=== PATIENT | male | born 1945 | race Caucasian/White ===

== ENCOUNTER → 2024-05-15 10:55 | Outpatient (REF) | payer MEDICARE, OTHER, SELFPAY | LOC: RAD 10:55 | PROVIDERS: ATTENDING PHYSICIAN Internal Medicine Cardiovascular Disease; FAMILY PHYSICIAN Internal Medicine | DX: R09.89 Other specified symptoms and signs involving the circulatory and respiratory systems (principal) | CPT/HCPCS: 93880 ==

== ENCOUNTER → 2024-07-24 10:14 | Outpatient (REF) | payer MEDICARE, OTHER, SELFPAY | LOC: HWRCS 10:14 | PROVIDERS: ATTENDING PHYSICIAN Internal Medicine Cardiovascular Disease; FAMILY PHYSICIAN Internal Medicine | DX: I50.32 Chronic diastolic (congestive) heart failure (principal) | CPT/HCPCS: 93306 ==

== ENCOUNTER 2024-12-26 09:33 | Day surgery (SDC) | payer MEDICARE, OTHER, SELFPAY ==
[2024-12-26] VITALS (7 sets, daily range): BP systolic 154–161; BP diastolic 76–101; BMI 31.3
--- NOTE | 2024-12-26 10:14 | W.ICD.CONTRA ---
Post ICD/RN HEMODIALYSIS-D
-
History of CO?: No
LV Function
Left ventricular function study result?: Ejection Fraction >/= 40%
ACEI/ARB/ARNI
Patient already on ACEI/ARB/ARNI: Yes
Beta-Brianna
Patient already on Beta Brianna: Yes
[2024-12-26 10:37] LABS: Glucose - Point of Care 177 mg/dl (70-99)
[2024-12-26 13:53] LABS: Glucose - Point of Care 114 mg/dl (70-99)
--- NOTE | 2024-12-26 14:19 | ITS.CL.ICD ---
Security Compliance Specialist - ICD
Implantable Cardioverter Defibrillator
Procedure Report:
ICD GENERATOR CHANGE REPORT
Date of Procedure: December 26, 2024
Primary Care Provider: Vishal Navas MD
Primary Lead Software Qa Engineer: Uma Florez MD
PROCEDURES:
1. Removal of ICD Generator, 2. ICD Implant
HISTORY:
Secondary prevention ICD indication.
He had cardiac arrest in 2015. ICD placed at that time. 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 He was initiated on antiarrhythmic drug therapy with sotalol 80 mg twice daily.
ICD is now at elective replacement indices.
He presents today for ICD generator change in the setting of secondary prevention ICD indication.
He has heart failure with improved ejection fraction with most recent echocardiogram from July 24, 2024 finding LVEF of 45-50% with basal inferior inferolateral hypokinesis. [place] [employer] class III
Life expectancy > 1 year
'Time-out' was called and confirmed. The patient was prepped and draped in sterile fashion. Lidocaine with epi was used for local anesthesia. An incision was made along the previous incision and the device and leads were carefully dissected from
the pocket. Hemostasis was obtained with electrocautery. The leads were from the device header and tested using an external analyzer. The pocket was liberally irrigated with antibiotic solution. Once testing (see below) showed adequate
and stable function, the leads were connected to the generator header and the leads and generator were placed within the pocket. The pocket was closed in the typical fashion.
EXISTING ICD Medtronic
IMPLANTED ICD: MEDTRONIC [id number], RSM [id number]
EXISTING LEADS:
RA: Medtronic [id number]
RV: Medtronic [id number]
DEVICE TESTING:
Sensing: RA 4 mV, RV 3.8 mV,
Capture: RA 1.5 V@ 0.4 ms, RV 0.5 V@ 0.4 ms
Ohms: RA 399, RV 285
FINAL PROGRAMMING:
Darwin Pacing: MVP mode 60�130 ppm
Tachy parameters:
VF: 188 bpm, ATP while charging, Shock
CONCLUSIONS:
1. Explant of ICD at [employer]
2. Successful implant ICD generator.
3. Normal function of ICD and leads at implant testing.
RECOMMENDATIONS:
1. Observation and consideration for discharge home later today.
2. In-Office wound check in 7 - 10 days.
Copy to:
Primary Care Provider: Vishal Navas MD
Primary Lead Software Qa Engineer: Uma Florez MD
== END 2024-12-26 14:35 | disposition home or self-care (01) ==
LOC: CATH 09:33
PROVIDERS: ATTENDING PHYSICIAN Internal Medicine Cardiovascular Disease; FAMILY PHYSICIAN Internal Medicine; OTHER PHYSICIAN Internal Medicine Cardiovascular Disease
DX: Z45.02 Encounter for adjustment and management of automatic implantable cardiac defibrillator (principal); I47.20 Ventricular tachycardia, unspecified; Z86.74 Personal history of sudden cardiac arrest; I48.0 Paroxysmal atrial fibrillation; I50.32 Chronic diastolic (congestive) heart failure; I11.0 Hypertensive heart disease with heart failure; I42.8 Other cardiomyopathies; I49.01 Ventricular fibrillation; Z86.73 Personal history of transient ischemic attack (TIA), and cerebral infarction without residual deficits
CPT/HCPCS: 33263; 82962; C1721